=== PATIENT | male | born 1945 | race Caucasian/White ===

== ENCOUNTER → 2017-11-05 | Outpatient (CLI) | payer OTHER | LOC: LAB SHORT 07:37 → PLD 07:37 | DX: D22.71 Melanocytic nevi of right lower limb, including hip (principal) | CPT/HCPCS: 88305 ==

== ENCOUNTER 2018-12-22 06:21 | Inpatient (IN) | payer OTHER ==
[~2018-12-22] VITALS: Ht 180.3 cm; Wt 88.1 kg
[2018-12-22] MEDS ORDERED: FINA5 PO (08:52)
[2018-12-22] MEDS ORDERED: LISI5 PO (08:52)
[2018-12-22] MEDS ORDERED: DOXA4 PO (08:52)
--- NOTE | 2018-12-22 14:00 | NUR ---
ADMISSION ASSESSMENT: Pt arrived to room PCU [facility] from [facility]. LS clear. HR reg, 100% paced per tele. BT positive. Pulses palp. Pt denies pain. Tegaderm dressing over non-adherant dressing on L chest wall over pacer site. No bleeding, swelling, hematama noted on or around site. Pt was oriented to room, unit, call light, care rounding, activity restrictions and treatements. UP to bathroom with one assist. Tolerated well. Call light in reach. Will monitor.
--- NOTE | 2018-12-22 19:00 | NUR ---
ASSUMED CARE- PT CURRENTLY RESTING IN BED WITH AT BEDSIDE. PT AOX4. PACER SITE NOTED TO HAVE TEGADERM AND NON-ADHERENT DRESSING WITH SMALL AMOUNT OF SEROSANGUINOUS DRAINAGE ON DRESSING. NO REDNESS, SWELLING OR HEMATOMA NOTED TO OR AROUND SITE. PT DENIES PAIN ON PALPATION. L ARM SLING IN PLACE FOR COMFORT AND MOBILITY RESTRICTION. PT EDUCATED ON MINIMIZING USE OF L ARM - VERBALIZES UNDERSTANDING. WILL CONTINUE WITH ASSESSMENT AND MONITORING. BED IN LOW POSITION, CALL LIGHT IN REACH.
--- NOTE | 2018-12-22 19:39 | NUR ---
shift summary: Pt resting in bed with at bedside. Pt has done well this shift. VSS throughout. Has remained 100% paced. Has denie pain. L chest wall pacer site with scant amount of bloody drainage on dressing. No bleeding, swelling or hematoma noted. L arm in sling per orders. No other changes this shift. Report given to night RN. Stable at end of shift.
--- NOTE | 2018-12-23 06:22 | NUR ---
SHIFT SUMMARY- PT HAS REMAINED AOX4 THROUGHOUT SHIFT. VSS. PLEASANT AND COOPERATIVE WITH CARE. PT CONTINUES TO AMBULATE WITH STANDBY ASSIST TO THE RESTROOM AND CONTINUES TO MINIMALLY USE L ARM PER INSTRUCTIONS. PACER SITE HAS REMAINED UNCHANGED SINCE START OF SHIFT. PT CONTINUES TO DENY PAIN. AND HAS RESTED WELL THROUGHOUT THE NIGHT. HEART RHYTHM HAS REMAINED 100% PACED THROUHGOUT SHIFT. ONE EPISODE OF HYPERTENSION NOTED POST AMBULATION- DECREASED WITHIN 30 MINUTES OF REST. NO OTHER CHANGES NOTED FROM INITIAL ASSESSMENT. WILL CONTINUE TO MONITOR AND REPORT TO ONCOMING SHIFT RN. BED IN LOW POSITION, CALL LIGHT IN REACH.
--- NOTE | 2018-12-23 08:50 | NUR ---
NURSING PCU DAYSHIFT: Assumed care of pt at approx 0700. A/O, very pleasant, cooperative w/care, noted L side hearing loss. Denies any pain/discomfort. Skin is intact w/surgical site to LCW r/t recent pacer placement, LUE in sling as per d/o. Tele in place, 100% paced, no c/o CP/pressure, HTN prior to a.m. meds. L/S cta t/o, O2 sat stable on RA, denies dyspnea, no noted cough. Abd SNT, BT+, voiding w/o difficulty per pt. PIV x1, s/l. Pt denies any current needs or questions regarding plan of care. Seen by mule tender, discharge home d/o received. Pt verbalized understanding of all written and verbal discharge instructions. Family currently at bedside, call light in reach, cont to monitor until discharge is complete.
== END 2018-12-23 09:30 | disposition home or self-care (01) | DRG 244 ==
LOC: MHTC 06:21 → PCU 13:59 → MHTC 14:34 → PCU 14:34
PROVIDERS: ADMIT Internal Medicine Cardiovascular Disease
PROC: 0JH606Z Insertion of Pacemaker, Dual Chamber into Chest Subcutaneous Tissue and Fascia, Open Approach (ICD-10-PCS; principal; 2018-12-22)
PROC: 02HL3JZ Insertion of Pacemaker Lead into Left Ventricle, Percutaneous Approach (ICD-10-PCS; 2018-12-22)
PROC: 02H63JZ Insertion of Pacemaker Lead into Right Atrium, Percutaneous Approach (ICD-10-PCS; 2018-12-22)
DX: I45.3 Trifascicular block (principal); Z82.49 Family history of ischemic heart disease and other diseases of the circulatory system; E78.5 Hyperlipidemia, unspecified; I10 Essential (primary) hypertension; N40.0 Benign prostatic hyperplasia without lower urinary tract symptoms; R73.9 Hyperglycemia, unspecified
CPT/HCPCS: 33208; 71045; 71046; 93017; 93350; 99152; 99153; C1785; C1898; J0690; J1644; J2250; J3010; J7030; J7040

== ENCOUNTER → 2019-04-12 | Outpatient (CLI) | payer OTHER ==
[~2019-04-12] MED LIST: DOXA4 PO; FINA5 PO; LISI5 PO
== END | disposition home or self-care (01) ==
LOC: PLD 11:27 → LAB SHORT 11:27
DX: D22.5 Melanocytic nevi of trunk (principal)
CPT/HCPCS: 88305

== ENCOUNTER 2019-10-05 08:46 | Inpatient (IN) | payer OTHER ==
[~2019-10-05] VITALS: Ht 180.3 cm; Wt 86.6 kg
[~2019-10-05 08:46] MED LIST changes: +Cardura8 MG PO; -DOXA4 PO; -LISI5 PO; +Prinivil10 MG PO
[2019-10-05 09:16] LABS: BASOPHILS ABSOLUTE AUTO 0.02 K/mm3 (0.00-0.23); BASOPHILS PERCENT AUTO 0 % (0-2); EOSINOPHILS ABSOLUTE AUTO 0.23 K/mm3 (0.00-0.68); EOSINOPHILS PERCENT AUTO 4 % (0-6); Hematocrit 38.7 % (37.0-53.0); Hemoglobin 13.1 g/dL (13.5-17.5); IMMATURE GRAN ABSOLUTE AUTO 0.02 K/mm3 (0.00-0.10); IMMATURE GRAN PERCENT AUTO 0 % (0-1); LYMPHOCYTES PERCENT AUTO 16 % (21-46); MONOCYTES ABSOLUTE AUTO 0.41 K/mm3 (0.16-1.47); MONOCYTES PERCENT AUTO 6 % (4-13); Mean Corpuscular HGB 33.2 pg (26.0-34.0); Mean Corpuscular HGB Conc 33.9 g/dL (31.5-36.5); Mean Corpuscular Volume 98 fL (80-100); Mean Platelet Volume 9.3 fL (9.1-12.4); NEUTROPHILS ABSOLUTE AUTO 4.73 K/mm3 (1.96-9.15); NEUTROPHILS PERCENT AUTO 74 % (41-73); Platelet Count 162 K/mm3 (150-400); RDW Coefficient Variation 12.4 % (11.7-14.2); RDW Standard Deviation 44.7 fL (35.1-46.3); Red Blood Cell Count 3.95 M/mm3 (4.30-5.90); White Blood Cell Count 6.41 K/mm3 (4.00-11.30)
[2019-10-05 09:33] LABS: Alanine Aminotransfer (ALT/SGP 15 U/L (12-78); Albumin, Blood 3.5 g/dL (3.4-5.0); Alk Phos 91 U/L (50-136); Anion Gap 5 mmol/L (6-16); Aspartate Aminotrans (AST/SGOT 15 U/L (12-37); Bilirubin, Total 0.6 mg/dL (0.1-1.0); Blood Urea Nitrogen 22 mg/dL (8-24); Bun/Creatinine Ratio 22.7 (12.0-20.0); CO2, Blood 25 mmol/L (21-32); Calcium, Blood 8.2 mg/dL (8.5-10.1); Chloride, Blood 110 mmol/L (98-108); Creatinine, Blood 0.97 mg/dL (0.60-1.20); Globulin, Blood 3.5 g/dL (2.2-4.0); Glomerular Filtration Rate >60 (60-); Glucose, Blood 121 mg/dL (70-99); Potassium, Blood 3.8 mmol/L (3.5-5.5); Sodium, Blood 140 mmol/L (136-145); Troponin I <0.015 ng/mL (0.000-0.040)
--- NOTE | 2019-10-05 15:08 | NUR ---
Echocardiogram completed.
--- NOTE | 2019-10-05 15:39 | NUR ---
PT ARRIVED TO ROOM 11 FROM ER AT 1455. PT INDEP, TRANSFERRED SELF TO BED. WEIGHT OBTAINED, VSS, PT UP TO BR INDEP, VOIDED 500CC URINE USED URINAL INSTRUCTED. PT "DEAF" IN LEFT EAR. ADMISSION HX COMPLETED BY DANITZA MORALES. ASSESSMENT NOTED. SPOUSE AND DAUGHTER AT BEDSIDE. PT IS NPO AT THIS TIME. LAST TIME HE REPORTS EATING OR DRINKING WAS LAST NIGHT. PT DENIES ANY PAIN AT THIS TIME. SCAR FROM PACER/DEFIB NOTED TO LEFT SUBCLAVIAN - PLACED LAST DEC [facility]. PT INSTRUCTED TO USE CALL LIGHT TO NOTIFY NURSE IF THERE ARE ANY CHANGES TO HIS SYMPTOMS, PT AGREES TO DO SO. CALL LIGHT IN REACH.
--- NOTE | 2019-10-05 16:29 | NUR ---
PT PACEMAKER CHECKED PER ED DOCTOR ORDER. APPEARS WORKING NORMALLY, LWR RATE SET AT 50 BPM. REPORT PLACED IN FRONT OF CHART AND ROUTED IN PACEART TO DR LEO
[2019-10-05 19:25] LABS: International Normalized Ratio 0.98; Prothrombin Time Results 10.4 Sec (9.7-11.5)
--- NOTE | 2019-10-05 19:45 | NUR ---
PT TRANSFER DR ANN IN TO SEE PATIENT FOR ASSESSMENT AND TO DISCUSS PLAN OF CARE. PT IS CURENTLY AOX4 AND RESTING IN BED. CURRENTLY DENIES CP, VSS. FAMILY AT BEDSIDE. PER PHYSICIAN, PT TO TRANSFER TO ICU FOR CONTINUATION OF TREATMENT. PT EDUCATED ON TRANSFER, MEDICATION ORDERS AND PLAN OF CARE BY DR ANN IN ADDITION TO MONITOR CAR OPERATORRON. HEPARIN DRIP STARTED WITH BOLUS PER ORDERS. PT TO TRANSFER TO ICU14, BEDSIDE REPORT TO BE GIVEN TO CARMEN NETTLES TO ASSUME CARE. WILL CONTINUE WITH MONITORING AND TRANSFER.
--- NOTE | 2019-10-05 20:10 | NUR ---
REPORT GIVEN TO MARIO MORALES. WHILE PERFORMING PT CARE IN ANOTHER ROOM, LEAD BURNER SUPERVISOR REPORTED ELEVATED TROP, THAT CARDIOLOGY CONSULT WAS NOTIFIED AND EKG DONE. UNTIL THAT POINT, PT WAS IN NAD VISITING WITH FAMILY AT BEDSIDE. CARDIOLOGY MD IN ROOM WITH PATIENT AT END OF SHIFT AND DURING REPORT. CLARIFIED CONSULT WITH LEAD BURNER SUPERVISOR. FULL REPORT PASSED ON TO BOTH THE NOC RN AND NOC LEAD BURNER SUPERVISOR.
--- NOTE | 2019-10-05 21:00 | NUR ---
PT ARRIVES TO ICU 14 AT 2015. PT COMES FROM PCU WHEREAS HE WAS HAVING ELEVATION IN TROPONIN, AND HAD INFORMED DR BHAKTA HE WAS HAVING CHEST PAIN. DR ANN PRECEDES PT TO UNIT WITH UPDATE ON PT'S STATUS. IF PT ASYMPTOMATIC THROUHGOUT THE NIGHT HE WILL HAVE ANGIOGRAM IN AM. IF HE BECOMES SYMPTOMATIC, PT IS TO GO TO DATA COMP[facility] TONIGHT. AT TIME OF GREETING, PT DENIES COMPLAINTS OF PAIN OR PRESSURE. HE DOES HAVE CHRONIC NECK AND SHOULDER PAIN. AND HAS HAD LAMINECTOMY OF C3-5 IN PAST. PT DESCRIBES PAIN/PRESSURE THAT HE WAS HAVING DIFFERENT TYPE PAIN AND PRESSURE EARLIER THAT PROMPTED HIM TO COME TO HOSPITAL. DENIES THOSE SENSATIONS AT THIS TIME. WILL REVIEW CHART AND PLAN OF CARE FOR THIS PT.
--- NOTE | 2019-10-05 23:19 | NUR ---
PT CONTINUES ON HEPARIN DRIP ORDERED. EDUCATION DONE ON MEDICATIONS INLUDING HEPARIN. PT HAS NOT REQUIRED TO HAVE NITRO DRIP STARTED SECONDARY TO NO PAIN OR PRESSURES SINCE TRANSFER. DR ANN HAS COME TO ROOM AND INTERVIEWED AND ASSESSED PT AGAIN. WILL CONTINUE TO MONITOR.
[2019-10-06 04:09] LABS: BASOPHILS ABSOLUTE AUTO 0.02 K/mm3 (0.00-0.23); BASOPHILS PERCENT AUTO 0 % (0-2); EOSINOPHILS ABSOLUTE AUTO 0.06 K/mm3 (0.00-0.68); EOSINOPHILS PERCENT AUTO 1 % (0-6); Hematocrit 35.4 % (37.0-53.0); IMMATURE GRAN ABSOLUTE AUTO 0.03 K/mm3 (0.00-0.10); IMMATURE GRAN PERCENT AUTO 0 % (0-1); LYMPHOCYTES ABSOLUTE AUTO 1.18 K/mm3 (0.84-5.20); LYMPHOCYTES PERCENT AUTO 14 % (21-46); MONOCYTES ABSOLUTE AUTO 0.69 K/mm3 (0.16-1.47); MONOCYTES PERCENT AUTO 8 % (4-13); Mean Corpuscular HGB 33.5 pg (26.0-34.0); Mean Corpuscular HGB Conc 33.9 g/dL (31.5-36.5); Mean Corpuscular Volume 99 fL (80-100); Mean Platelet Volume 9.2 fL (9.1-12.4); NEUTROPHILS ABSOLUTE AUTO 6.26 K/mm3 (1.96-9.15); NEUTROPHILS PERCENT AUTO 76 % (41-73); Platelet Count 149 K/mm3 (150-400); RDW Coefficient Variation 12.6 % (11.7-14.2); Red Blood Cell Count 3.58 M/mm3 (4.30-5.90); White Blood Cell Count 8.24 K/mm3 (4.00-11.30)
[2019-10-06 04:27] LABS: Alanine Aminotransfer (ALT/SGP 22 U/L (12-78); Albumin, Blood 3.1 g/dL (3.4-5.0); Alk Phos 74 U/L (50-136); Anion Gap 8 mmol/L (6-16); Aspartate Aminotrans (AST/SGOT 90 U/L (12-37); Bilirubin, Total 0.8 mg/dL (0.1-1.0); Blood Urea Nitrogen 23 mg/dL (8-24); Bun/Creatinine Ratio 23.9 (12.0-20.0); CHOL/HDL RATIO 2.8; CO2, Blood 23 mmol/L (21-32); Calcium, Blood 8.2 mg/dL (8.5-10.1); Chloride, Blood 111 mmol/L (98-108); Cholesterol 152 mg/dL (50-200); Creatinine, Blood 0.96 mg/dL (0.60-1.20); Globulin, Blood 3.2 g/dL (2.2-4.0); Glomerular Filtration Rate >60 (60-); Glucose, Blood 99 mg/dL (70-99); HDL Cholesterol 55 mg/dL (>39); LDL/HDL RATIO 1.6; Low Density Lipoprotein Chol 87 mg/dL (0-110); Magnesium, Blood 1.9 mg/dL (1.6-2.4); Potassium, Blood 3.7 mmol/L (3.5-5.5); Sodium, Blood 142 mmol/L (136-145); Total Protein, Blood 6.3 g/dL (6.4-8.2); Triglycerides 50 mg/dL (30-160); Very Low Density Lipoprot Chol 10 mg/dL (6-32)
--- NOTE | 2019-10-06 06:00 | NUR ---
PT CONTINUES THROUGH THE NIGHT WITHOUT COMPLAINTS OF CHEST PAIN OR PRESSURE. VSS. CONTINUES ON HEPARIN DRIP. NO S/S BLEEDING. PT HAS BEEN ABLE TO MOVE ABOUT BED AND STAND AT SIDE OF BED TO VOID WITHOUT ISSUES. WILL CONTINUE TO MONITOR PT, AND WILL REPORT OFF TO ONCOMING RN.
--- NOTE | 2019-10-06 07:30 | NUR ---
BEGINNING OF SHIFT Assumed care of pt at 0700. Bedside report received from Sha MORALES. Pt on 2 LPM NC. Does not wear O2 at home. Titrated to room air, pt tolerated well. SpO2 96%. 100% paced per monitor. Pt denies diffuse pressure to neck, back, and arms, that he experienced yesterday. Denies shortness of breath, lightheadedness, or dizziness. Dr Lopez in to see pt at 0700. States plan for pt to have coronary angiogram today.
--- NOTE | 2019-10-06 10:40 | NUR ---
PT BACK FROM INTERNAL AUDIT SENIOR MANAGER Pt back from dairy lab technician. Right transradial access with TR band in place. 14 mL of air in band per dairy lab technician staff. Color, sensation, distal pulses, capillary refill equal BUE. SpO2 probe on right index finger, excellent pleth, SpO2 96%. 100% ventricular paced per heart monitor. 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
--- NOTE | 2019-10-06 10:55 | NUR ---
CALL PLACED TO DR ALCALA Inquired if pt is allowed to eat. Provider stated yes. Inquired if heparin drip is to be restarted, provider stated yes. At this time, there is no accepting provider for transfer. This RN spoke to pharmacist, Dave, to notify that heparin drip was stopped, pt went to woven label designer, and then heparin drip is to be restarted. Pharmacist stated to continue heparin at current dose and time of next PTT will be adjusted.
--- NOTE | 2019-10-06 11:30 | NUR ---
UPDATE Dr Shahid is receiving provider. Transfer center estimates that transfer will take place late afternoon or early evening today. Family updated. Pt and family had several questions about coronary artery disease and congestive heart failure. Education provided. Pt and family verbalized understanding.
--- NOTE | 2019-10-06 13:44 | NUR ---
TRANSFER Pt departed from ICU 14 at 1313. Assigned to room 4416 at [facility]. Telephone report given to Truman MORALES. Pt departed from facility at [address] [facility]. Pt departed with two peripheral IV access. Heparin infusing at 12.5 units/kg/hr. Right TR band remained in place with 14 mL of air in place. Color, sensation, distal pulses and capillary refill equal BUE.
[2019-11-25] MEDS ORDERED: B-12 PO (16:49)
[2019-11-25] MEDS ORDERED: ASPI81CH PO (16:50)
[2019-11-25] MEDS ORDERED: ASCO500 PO (16:50)
[2019-11-25] MEDS ORDERED: ATOR20 PO (16:51)
[2019-11-25] MEDS ORDERED: Vitamin D2000 UNIT PO (16:51)
[2019-11-25] MEDS ORDERED: ROXICODONE5 MG PO (16:52)
[2019-11-25] MEDS ORDERED: Fish Oil 10001000 MG PO (16:52)
[2019-11-25] MEDS ORDERED: METO25 PO (16:52)
[2019-11-25] MEDS ORDERED: FURO20 PO (16:53)
[2019-11-25] MEDS ORDERED: XARELTO20 MG PO (16:53)
[2019-11-26] MEDS ORDERED: AMIODARONE HCL200 MG PO (09:48)
== END 2019-10-06 13:13 | disposition short-term general hospital (02) | DRG 282 ==
LOC: ER 08:46 → PCU 14:46 → ICUW 14:46 → PCU 15:06 → ICUW 19:50
PROVIDERS: Emergency Medicine; ADMIT Family Medicine
PROC: 4A023N7 Measurement of Cardiac Sampling and Pressure, Left Heart, Percutaneous Approach (ICD-10-PCS; principal; 2019-10-06)
PROC: B211YZZ Fluoroscopy of Multiple Coronary Arteries using Other Contrast (ICD-10-PCS; 2019-10-06)
DX: I21.4 Non-ST elevation (NSTEMI) myocardial infarction (principal); I10 Essential (primary) hypertension; I25.5 Ischemic cardiomyopathy; I25.10 Atherosclerotic heart disease of native coronary artery without angina pectoris; M54.12 Radiculopathy, cervical region; I25.82 Chronic total occlusion of coronary artery; Z87.891 Personal history of nicotine dependence; G47.33 Obstructive sleep apnea (adult) (pediatric)
CPT/HCPCS: 36415; 71046; 71275; 74175; 76937; 80053; 80061; 83735; 83880; 84484; 85025; 85347; 85610; 85730; 93005; 93010; 93280; 93306; 93458; 93571; 96374; 99152; 99153; 99285-25; C1769; C1887; C1894; J1644; J2250; J3010; J7030; Q9967

== ENCOUNTER 2021-07-24 06:03 | Day surgery (SDC) | payer OTHER ==
[~2021-07-24] VITALS: Ht 177.8 cm; Wt 80.8 kg
[~2021-07-24 06:03] MED LIST changes: +AMIODARONE HCL200 MG PO; +ASCO500 PO; +ASPI81CH PO; +ATOR20 PO; +B-12 PO; +ENTRESTO 24 MG1 EAC3 PO; +FURO20 PO; +Fish Oil 10001000 MG PO; +METO25 PO; +ROXICODONE5 MG PO; +Vitamin D2000 UNIT PO; +XARELTO20 MG PO
--- NOTE | 2021-07-24 10:50 | NUR ---
Patient up to Ambulate independently. Gait steady. Discharge instructions reviewed with patient. Patient verbalizes understanding. Copy given to patient to take home. Patient States Post-Procedure ride home has been arranged. Discharged via wheelchair to private car for ride home.
--- NOTE | 2021-07-26 10:00 | NUR ---
07/26/21 Flavia Mathews VERIFICATIONS: EDIT CHART.
== END 2021-07-24 10:56 | disposition home or self-care (01) ==
LOC: ORSCMMR 06:03 → ORD 07:30 → ORSCMMR 07:30
PROVIDERS: Surgery
PROC: 8E0W4CZ Robotic Assisted Procedure of Trunk Region, Percutaneous Endoscopic Approach (ICD-10-PCS; principal; 2021-07-24 07:30)
PROC: 0YU54JZ Supplement Right Inguinal Region with Synthetic Substitute, Percutaneous Endoscopic Approach (ICD-10-PCS; principal; 2021-07-24 07:30)
DX: K40.30 Unilateral inguinal hernia, with obstruction, without gangrene, not specified as recurrent (principal); I48.92 Unspecified atrial flutter; Z79.01 Long term (current) use of anticoagulants; I10 Essential (primary) hypertension; I25.10 Atherosclerotic heart disease of native coronary artery without angina pectoris; Z95.0 Presence of cardiac pacemaker; E78.00 Pure hypercholesterolemia, unspecified; Z86.718 Personal history of other venous thrombosis and embolism; Z79.899 Other long term (current) drug therapy
CPT/HCPCS: 49650; S2900; C1781; J0690; J1100; J1885; J2250; J2405; J2704; J3010; J7120

== ENCOUNTER 2022-12-10 12:45 | Day surgery (SDC) | payer OTHER ==
[~2022-12-10] VITALS: Ht 152.4 cm; Wt 77.4 kg
== END 2022-12-10 15:43 | disposition home or self-care (01) ==
LOC: ORSCSDS 12:45
PROVIDERS: Internal Medicine Gastroenterology
PROC: 0DBL8ZX Excision of Transverse Colon, Via Natural or Artificial Opening Endoscopic, Diagnostic (ICD-10-PCS; principal; 2022-12-10 14:15)
DX: Z12.11 Encounter for screening for malignant neoplasm of colon (principal); Z86.010 Personal history of colon polyps; D12.3 Benign neoplasm of transverse colon; K57.30 Diverticulosis of large intestine without perforation or abscess without bleeding; K64.8 Other hemorrhoids; I25.10 Atherosclerotic heart disease of native coronary artery without angina pectoris; I10 Essential (primary) hypertension; I25.2 Old myocardial infarction; N40.0 Benign prostatic hyperplasia without lower urinary tract symptoms; E78.00 Pure hypercholesterolemia, unspecified; G47.33 Obstructive sleep apnea (adult) (pediatric); Z86.718 Personal history of other venous thrombosis and embolism; Z79.01 Long term (current) use of anticoagulants; I48.92 Unspecified atrial flutter; Z79.899 Other long term (current) drug therapy
CPT/HCPCS: 88305; J2250; J2704; J7120

== ENCOUNTER 2025-08-16 12:15 | Day surgery (SDC) | payer OTHER ==
[~2025-08-16] VITALS: Ht 180.3 cm; Wt 75.8 kg
[~2025-08-16 12:15] MED LIST changes: +Balanced Salt Epinephrine Irrigation Solution 500 mL IR SCH; +Moxifloxacin HCL 0.5 MG/0.1 ML 0.4MLSYR RIGHTEYE SCH; +Ondansetron 4 MG SoluTab MM PRN; +PHENYLEPHRINE\\TROPICAMIDE\\TETRACAINE OPHTHALMIC DILATING SOLN RIGHTEYE PRN; +Povidone-Iodine 450 DROP/30 ML Solution ONE; +Povidone-Iodine 450 DROP/30 ML Solution RIGHTEYE SCH; +Tetracaine HCl/Pf 0.5% Opth Soln 4 ml ONE
[2025-08-16] MEDS ORDERED: FARXIGA10 MG PO (12:40)
--- NOTE | 2025-08-16 12:47 | NUR ---
08/16/25 1247 PARAS BONILLA PT REQUESTS NO SEDATION. AT BESIDE. CALL LIGHT IN REACH. RAILS UP.
[2025-08-16] MEDS ORDERED: Tetracaine HCl 0.5% Opth Soln 15 ml RIGHTEYE ONE (13:09)
--- NOTE | 2025-08-16 13:13 | NUR ---
08/16/25 1313 Frantz Kimball N 128/92 99% 10L BLOW BY O2 79 20
[2025-08-16 13:29] VITALS: BP 130/89
== END 2025-08-16 13:55 | disposition home or self-care (01) ==
LOC: ORSCSDS 12:15
PROVIDERS: Student in an Organized Health Care Education/Training Program
PROC: 08RJ3JZ Replacement of Right Lens with Synthetic Substitute, Percutaneous Approach (ICD-10-PCS; principal; 2025-08-16 14:00)
DX: H25.813 Combined forms of age-related cataract, bilateral (principal); I10 Essential (primary) hypertension; I25.10 Atherosclerotic heart disease of native coronary artery without angina pectoris; N40.0 Benign prostatic hyperplasia without lower urinary tract symptoms; E78.5 Hyperlipidemia, unspecified; G47.33 Obstructive sleep apnea (adult) (pediatric); Z79.01 Long term (current) use of anticoagulants; Z79.899 Other long term (current) drug therapy
CPT/HCPCS: V2632

== ENCOUNTER 2025-08-23 06:22 | Day surgery (SDC) | payer OTHER ==
[~2025-08-23] VITALS: Ht 180.3 cm; Wt 75.9 kg
[~2025-08-23 06:22] MED LIST changes: +FARXIGA10 MG PO; +Moxifloxacin HCL 0.5 MG/0.1 ML 0.4MLSYR LEFTEYE SCH; -Moxifloxacin HCL 0.5 MG/0.1 ML 0.4MLSYR RIGHTEYE SCH; +PHENYLEPHRINE\\TROPICAMIDE\\TETRACAINE OPHTHALMIC DILATING SOLN LEFTEYE PRN; -PHENYLEPHRINE\\TROPICAMIDE\\TETRACAINE OPHTHALMIC DILATING SOLN RIGHTEYE PRN; +Povidone-Iodine 450 DROP/30 ML Solution LEFTEYE SCH; -Povidone-Iodine 450 DROP/30 ML Solution RIGHTEYE SCH
--- NOTE | 2025-08-23 06:47 | NUR ---
08/23/25 0647 Daisy Cardenas NO SEDATION PER ORDERS. PT STATES 0/10 ANXIETY
[2025-08-23] MEDS ORDERED: Tetracaine HCl 0.5% Opth Soln 15 ml LEFTEYE ONE (07:55)
--- NOTE | 2025-08-23 08:00 | NUR ---
08/23/25 0800 Frantz Kimball N 126/87 95% 10 L BLOW BY O2 74 18
--- NOTE | 2025-08-23 08:33 | NUR ---
08/23/25 0833 Neena Frederick PT TRANSFERRED TO CHAIR ASSISTED BY RN. AT BEDSIDE. DISCHARGE INSTRUCTIONS COMPLETED. PT AND HAVE NO QUESTIONS AT THIS TIME. PT DENIES N/V/DIZZINESS/PAIN.
[2025-08-23 08:34] VITALS: BP 125/82
== END 2025-08-23 08:34 | disposition home or self-care (01) ==
LOC: ORSCSDS 06:22
PROVIDERS: Student in an Organized Health Care Education/Training Program
PROC: 08RK3JZ Replacement of Left Lens with Synthetic Substitute, Percutaneous Approach (ICD-10-PCS; principal; 2025-08-23 08:00)
DX: H25.812 Combined forms of age-related cataract, left eye (principal); Z96.1 Presence of intraocular lens; I10 Essential (primary) hypertension; E78.5 Hyperlipidemia, unspecified; I25.10 Atherosclerotic heart disease of native coronary artery without angina pectoris; I25.2 Old myocardial infarction; N40.0 Benign prostatic hyperplasia without lower urinary tract symptoms; G47.33 Obstructive sleep apnea (adult) (pediatric); Z86.718 Personal history of other venous thrombosis and embolism; Z79.01 Long term (current) use of anticoagulants; Z79.899 Other long term (current) drug therapy
CPT/HCPCS: J2003; V2632